=== PATIENT | female | born 2005 | race African-American/Black ===

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

== ENCOUNTER 2025-04-21 11:37 | Emergency (ER) | payer MEDICAID, SELFPAY ==
[2025-04-21] MEDS ORDERED: Dexamethasone 10 MG/ML VIAL ONE (13:19)
== END 2025-04-21 13:27 | disposition home or self-care (01) ==
LOC: ERS 11:37
DX: B34.9 Viral infection, unspecified (principal)
CPT/HCPCS: 87081; 87428; 87430; 99283; J1100